=== PATIENT | male | born 1945 | race Caucasian/White ===

== ENCOUNTER 2017-04-06 13:32 | Inpatient (IN) | payer OTHER ==
[~2017-04-06] VITALS: Ht 175.3 cm; Wt 73.1 kg
[~2017-04-06 13:32] MED LIST: ASPI-621 PO; ATEN100T PO; ATOR20TA9 PO; CEFAZOLIN 1,000 MG ONE; CLOP75TA PO; CYAN2000 PO; CYAN500T22 PO; EPHEDRINE 50 MG/ML, 1ML ONE; KETOROLAC 30 MG/1 ML ONE; LEVO137T3 PO; LISI5TAB7 PO; METO50TA82 PO; NITR0.4T SL; ONDANSETRON 2MG/ML, 2ML ONE; PHENYLEPHRINE 10 MG/ML ONE; POTA20TA14 PO; PROPOFOL 10 MG/ML, 20ML ONE
[2017-04-06] MEDS ORDERED: SODIUM CHLORIDE 0.9% 1,000ML IVBOLUS ONE (14:30)
[2017-04-06] MEDS ORDERED: SODIUM CHLORIDE FLUSH 10ML SYR IVF ONE (14:30)
[2017-04-06] MEDS ORDERED: MORPHINE SULFATE 4 MG/ML, 1ML IVPush PRN (14:30)
[2017-04-06 14:45] LABS: BLOOD UREA NITROGEN 18 mg/dL (7-18)
[2017-04-06 14:49] LABS: IS PT STATUS REG ER OR PRE ER? YES
[2017-04-06] MEDS ORDERED: POTASSIUM CHLORIDE 40 MEQ in SODIUM CHLORIDE 0.9% 500 ML IV ONE (15:30)
[2017-04-06] MEDS ORDERED: MORPHINE SULFATE 4 MG/ML, 1ML ONE (15:42)
[2017-04-06] MEDS ORDERED: morphine SULFATE 10 MG/ML, 1ML IVPush PRN (16:00)
[2017-04-06] MEDS ORDERED: BISACODYL 10 MG SUPP PR PRN (16:00)
[2017-04-06] MEDS ORDERED: LABETALOL 5MG/ML, 20ML IVPush PRN (16:00)
[2017-04-06] MEDS ORDERED: ONDANSETRON ODT 4 MG PO PRN (16:00)
[2017-04-06] MEDS ORDERED: POLYETHYLENE GLYCOL 17 GM PACKET PO PRN (16:00)
[2017-04-06] MEDS ORDERED: ONDANSETRON 2MG/ML, 2ML IVPush PRN ×2 (16:00→22:00)
[2017-04-06] MEDS ORDERED: DOCUSATE 100 MG CAPSULE PO PRN (16:00)
[2017-04-06 16:53] VITALS: BP 154/77
[2017-04-06] MEDS: POTASSIUM CHLORIDE 20 MEQ in SODIUM CHLORIDE 0.9% 1,000 ML IV SCH ×2 (19:00→23:33)
[2017-04-06] MEDS ORDERED: PROMETHAZINE 25 MG/ML, 1ML IV PRN (20:00)
[2017-04-06] MEDS ORDERED: HYDROmorphone 1 MG/ML, 1ML IV PRN (20:00)
[2017-04-06] MEDS ORDERED: OXYcodone 5 MG/5 ML ORAL.SOL UDC PO PRN (20:00)
[2017-04-06] MEDS ORDERED: ACETAMINOPHEN 325 MG TABLET PO PRN (20:00)
[2017-04-06] MEDS ORDERED: ACETAMINOPHEN 650 MG/20.3 ML UDC ONE (20:15)
[2017-04-06] MEDS ORDERED: FENTANYL PF 100 MCG/2ML ONE (20:15)
[2017-04-06] MEDS ORDERED: OXYcodone 5 MG/5 ML ORAL.SOL UDC ONE (20:15)
[2017-04-06] MEDS: FENTANYL PF 100 MCG/2ML IV PRN ×2 (20:22→20:36)
[2017-04-06] MEDS: ACETAMINOPHEN 325 MG TABLET PO PRN (20:23)
[2017-04-06 21:20] VITALS: BP 123/71
[2017-04-06] MEDS ORDERED: OXYcodone IR 5MG TABLET PO PRN (22:00)
[2017-04-06] MEDS: KETOROLAC 30 MG/1 ML IVPush SCH (22:49)
[2017-04-06 22:59] VITALS: BP 107/66
[2017-04-07 00:36] VITALS: BP 104/64
[2017-04-07] MEDS: ACETAMINOPHEN 500 MG TABLET PO SCH ×3 (02:34→14:15)
[2017-04-07 03:40] VITALS: BP 101/66
[2017-04-07] MEDS: CEFAZOLIN PMX 2GM/50ML 50 ML IVPB SCH ×3 (04:07→20:03)
[2017-04-07 06:13] LABS: ASPARTATE AMINO TRANSFERASE 17 U/L (15-37); BLOOD UREA NITROGEN 11 mg/dL (7-18)
[2017-04-07] MEDS: KETOROLAC 30 MG/1 ML IVPush SCH ×2 (06:33→14:15)
[2017-04-07 07:32] VITALS: BP 121/67
[2017-04-07] MEDS: LEVOTHYROXINE 137 MCG TABLET PO SCH (08:13)
[2017-04-07] MEDS: ENOXAPARIN 40 MG/0.4 ML SQ SCH (08:13)
[2017-04-07] MEDS ORDERED: MAGNESIUM SULFATE PMX 4GM/100M 100 ML IV ONE (09:00)
[2017-04-07] MEDS: METOPROLOL TARTRATE 50 MG TABLET PO SCH ×2 (10:07→17:21)
[2017-04-07] MEDS: POTASSIUM CHLORIDE 20 MEQ in SODIUM CHLORIDE 0.9% 1,000 ML IV SCH ×2 (10:07→22:25)
[2017-04-07 14:53] VITALS: BP 129/68
[2017-04-07 17:17] VITALS: BP 125/74
[2017-04-07 19:02] VITALS: BP 114/67
[2017-04-07] MEDS ORDERED: ATORVASTATIN 20 MG TABLET PO SCH (21:00)
[2017-04-07] MEDS: ACETAMINOPHEN 325 MG TABLET PO PRN (23:59)
[2017-04-08 02:20] VITALS: BP 129/66
[2017-04-08 05:28] LABS: BLOOD UREA NITROGEN 7 mg/dL (7-18)
[2017-04-08] MEDS: METOPROLOL TARTRATE 50 MG TABLET PO SCH (05:29)
[2017-04-08] MEDS: LEVOTHYROXINE 137 MCG TABLET PO SCH (05:56)
[2017-04-08 07:39] VITALS: BP 146/80
[2017-04-08] MEDS: ENOXAPARIN 40 MG/0.4 ML SQ SCH (07:46)
[2017-04-08] MEDS ORDERED: ASPIRIN 81 MG TABLET CHEW PO SCH (09:00)
[2017-04-08] MEDS ORDERED: OXYC5TAB3 PO (11:00)
[2017-05-08] MEDS ORDERED: METOPROLOL TARTRATE 50 MG TABLET PO SCH (18:00)
== END 2017-04-08 12:44 | disposition home health service (06) | DRG 481 ==
LOC: ED 14:58 → EDIP 15:18 → 4EST 16:42 → DCLOUNGE 04-08 12:14
PROVIDERS: ADMIT Internal Medicine; ATTEND Internal Medicine
PROC: 0QS734Z Reposition Left Upper Femur with Internal Fixation Device, Percutaneous Approach (ICD-10-PCS; principal; 2017-04-06 19:00)
DX: S72.012A Unspecified intracapsular fracture of left femur, initial encounter for closed fracture (principal); K90.9 Intestinal malabsorption, unspecified; R17 Unspecified jaundice; D72.829 Elevated white blood cell count, unspecified; E53.8 Deficiency of other specified B group vitamins; E83.42 Hypomagnesemia; I11.9 Hypertensive heart disease without heart failure; E87.6 Hypokalemia; I10 Essential (primary) hypertension; Z66 Do not resuscitate; D75.89 Other specified diseases of blood and blood-forming organs; I25.2 Old myocardial infarction; Z79.82 Long term (current) use of aspirin; Z90.49 Acquired absence of other specified parts of digestive tract; Z85.850 Personal history of malignant neoplasm of thyroid
CPT/HCPCS: 36415; 70450; 71010; 72170; 76000; 80048; 80053; 81003; 82040; 83735; 84484; 85025; 85610; 85730; 93005; 96365; 96375; C1713; J0690; J1650; J1885; J2405; J2704; J3010; J3480; J2370; J3475; J7030; J7040

== ENCOUNTER → 2017-08-06 | Outpatient (CLI) | payer OTHER ==
[~2017-08-06] MED LIST changes: -CEFAZOLIN 1,000 MG ONE; -EPHEDRINE 50 MG/ML, 1ML ONE; -KETOROLAC 30 MG/1 ML ONE; -ONDANSETRON 2MG/ML, 2ML ONE; +OXYC5TAB3 PO; -PHENYLEPHRINE 10 MG/ML ONE; -PROPOFOL 10 MG/ML, 20ML ONE; +REGADENOSON 0.4 MG/5 ML SYRINGE ONE
== END | disposition home or self-care (01) ==
LOC: CFH 06:45
PROVIDERS: ATTEND Internal Medicine Cardiovascular Disease
DX: I11.0 Hypertensive heart disease with heart failure (principal); I50.21 Acute systolic (congestive) heart failure; Q21.1 Atrial septal defect; E78.5 Hyperlipidemia, unspecified; I25.2 Old myocardial infarction
CPT/HCPCS: 78452; 93017; 93306; A9502; J2785